=== PATIENT | female | born 1965 | race Caucasian/White ===

== ENCOUNTER 2019-01-21 10:19 | Emergency (ER) | payer MEDICARE, BC ==
[~2019-01-21] VITALS: Ht 157.5 cm; Wt 58.8 kg
[~2019-01-21 10:19] MED LIST: CARI350T PO; HYDR-3498 PO; LEVO75TA84; NORC 5-325 PO
[2019-01-21 10:45] VITALS: Ht 157.5 cm; Wt 58.8 kg
[2019-01-21] MEDS ORDERED: KETOROLAC 60 MG INJ IM STA (12:10)
--- NOTE | 2019-01-21 12:22 | ERD ---
ER Documentation Chief Complaint Chief Complaint c/o neck pain with tingling on her finger and toes HPI 53-year-old female presents with complaint of neck stiffness, shooting pain going down left arm, and shooting pain going down left leg. States that she is has a history of sciatica. She is ambulatory. States that she does not want narcotics but does want medication for pain. Denies any numbness, saddle numbness, incontinence, weakness, fevers, jaw claudication, vision problems. not taking any treatments ROS All systems reviewed and are negative except as per history of present illness. Medications Home Meds Active Scripts Cyclobenzaprine Hcl* (Cyclobenzaprine Hcl*) 10 Mg Tablet, 10 MG PO TID, #20 TAB Prov:MILTON LIANG 01/21/19 Ibuprofen* (Motrin*) 600 Mg Tab, 600 MG PO Q6, #30 TAB Prov:MILTON LIANG 01/21/19 Hydrocodone Bit-Acetaminophen* ([place]*) 5-325 Mg Tab, 1 TAB PO Q6 PRN for PAIN, #10 TAB Prov:VERENA RIBEIRO PA-C 03/03/15 Reported Medications Hydrocodone Bit-Acetaminophen* ([place]*) 5-325 Tablet, 1 TAB PO TID PRN for PAIN, TAB 03/16/14 Carisoprodol* ([place]*) 350 Mg Tablet, 350 MG PO Q8H PRN for MUSCLE SPASMS, TAB 03/16/14 Levothyroxine Sodium* (Synthroid*) 75 Mcg Tablet 03/02/11 Allergies Allergies: Coded Allergies: No Known Allergies (Verified Allergy, Mild, 03/03/15) PMhx/Soc History of Surgery: Yes ( 1991) Anesthesia Reaction: No Hx Neurological Disorder: No Hx Respiratory Disorders: No Hx Cardiac Disorders: No Hx Psychiatric Problems: Yes (BI-POLAR, DEPRESSION) Hx Miscellaneous Medical Probl: No Hx Alcohol Use: No Hx Substance Use: No Hx Tobacco Use: No Smoking Status: Never smoker FmHx Family History: No diabetes, No coronary disease, No other Physical Exam Vitals Vital Signs Date Temp Pulse Resp B/P (MAP) Pulse Ox O2 O2 Flow FiO2 Time Delivery Rate 01/21/19 63 16 120/62 97 Room Air 14:17 (81) 01/21/19 99.0 95 16 123/60 97 10:45 (81) Physical Exam Const: No acute distress Head: Atraumatic. No temporal pulsations or tenderness to palpation. Eyes: Normal Conjunctiva ENT: Normal External Ears, Nose and Mouth. No trismus. Neck: Limited rotation. No meningismus. No step-offs or bony deformities noted. No erythema or edema. Resp: Clear to auscultation bilaterally Cardio: Regular rate and rhythm, no murmurs Abd: Soft, non tender, non distended. Normal bowel sounds Skin: No petechiae or rashes Back: No midline or flank tenderness Ext: No cyanosis, or edema Neur: Awake and alert Psych: Normal Mood and Affect Neuro: M/S: Alert and oriented Face: EOMI, face and pharynx with normal sensation and function Motor: Normal strength throughout Sensation: Normal sensation throughout Speech: Normal Cerebel: Normal coordination Normal gait Normal finger to nose DTR: 2+ and symmetric upper/lower extremities Result Diagram: 01/21/19 1229 01/21/19 1229 Results 24 hrs Laboratory Tests Test 01/21/19 12:29 White Blood Count 4.0 10^3/ul Red Blood Count 4.35 10^6/ul Hemoglobin 13.1 g/dl Hematocrit 38.6 % Mean Corpuscular Volume 88.7 fl Mean Corpuscular Hemoglobin 30.1 pg Mean Corpuscular Hemoglobin Concent 33.9 g/dl Red Cell Distribution Width 13.0 % Platelet Count 281 10^3/UL Mean Platelet Volume 9.3 fl Immature Granulocytes % 0.300 % Neutrophils % 44.7 % Lymphocytes % 41.4 % Monocytes % 9.8 % Eosinophils % 3.0 % Basophils % 0.8 % Nucleated Red Blood Cells % 0.0 /100WBC Immature Granulocytes # 0.010 10^3/ul Neutrophils # 1.8 10^3/ul Lymphocytes # 1.6 10^3/ul Monocytes # 0.4 10^3/ul Eosinophils # 0.1 10^3/ul Basophils # 0.0 10^3/ul Nucleated Red Blood Cells # 0.0 10^3/ul Sodium Level 137 mmol/L Potassium Level 4.2 mmol/L Chloride Level 101 mmol/L Carbon Dioxide Level 26 mmol/L Anion Gap 10 Blood Urea Nitrogen 6 mg/dl Creatinine 0.56 mg/dl Est Glomerular Filtrat Rate mL/min > 60 mL/min Glucose Level 83 mg/dl Hemoglobin A1c 5.3 % Calcium Level 9.4 mg/dl Total Bilirubin 0.5 mg/dl Direct Bilirubin 0.00 mg/dl Indirect Bilirubin 0.5 mg/dl Aspartate Amino Transf (AST/SGOT) 23 IU/L Alanine Aminotransferase (ALT/SGPT) 21 IU/L Alkaline Phosphatase 72 IU/L Total Protein 8.0 g/dl Albumin 4.5 g/dl Globulin 3.50 g/dl Albumin/Globulin Ratio 1.28 Current Medications Medications Dose Sig/[place] Start Time Status Last (Trade) Ordered Route PRN Stop Time Admin Dose Reason Admin Ketorolac 60 mg ONCE STAT 01/21/19 DC 01/21/19 Tromethamine IM 12:10 12:22 (Toradol) 01/21/19 12:12 10 mg ONCE ONCE 01/21/19 DC 01/21/19 Cyclobenzapri PO 12:30 12:22 ne HCl 01/21/19 12:31 (Flexeril) Procedures/MDM MDM: Patient presentation consistent with cervical radiculopathy as well as sciatica. Per patient's request I ordered blood work to rule out neuropathy. Results within normal limits. Patient was given Toradol and Flexeril in the ER and stated that her symptoms resolved 100% at discharge. Patient given Rx for ibuprofen and Flexeril. I have low suspicion for CVA, cauda equina, epidural abscess, meningitis, fracture, or any other emergent condition. patient discharged with strict ER precautions. Patient advised to follow up with PMD. All questions answered at discharge. Departure Diagnosis: Primary Impression: Cervical radiculopathy Additional Impression: Sciatica Condition: Stable MILTON LIANG January 21, 2019 12:22
[2019-01-21] MEDS ORDERED: CYCLOBENZAPRINE 10 MG TAB PO ONE (12:30)
[2019-01-21] MEDS ORDERED: IBUP-1542 PO (13:44)
[2019-01-21] MEDS ORDERED: CYCL10TA7 PO (13:44)
[2019-01-21 14:17] VITALS: BP 120/62; PULSE 63; RESP 16
== END 2019-01-21 14:17 | disposition home or self-care (01) ==
LOC: FTE 10:19
DX: M54.12 Radiculopathy, cervical region (principal); M54.32 Sciatica, left side
CPT/HCPCS: 36415; 80053; 83036; 85025; 96372; 99284; J1885

== ENCOUNTER 2019-02-04 08:23 | Emergency (ER) | payer MEDICARE, BC ==
[~2019-02-04] VITALS: Ht 149.9 cm; Wt 62.0 kg
[~2019-02-04 08:23] MED LIST changes: +CYCL10TA7 PO; +IBUP-1542 PO
[2019-02-04 08:32] VITALS: Ht 149.9 cm; Wt 62.0 kg
[2019-02-04] MEDS ORDERED: KETOROLAC 15 MG INJ IM STA (09:07)
[2019-02-04] MEDS ORDERED: DIAZ5TAB PO (09:09)
[2019-02-04] MEDS ORDERED: DOCU-144 PO (09:09)
[2019-02-04] MEDS ORDERED: MAGNESIUM CITRATE 300 ML BTL PO ONE (09:30)
--- NOTE | 2019-02-04 10:06 | ERD ---
ER Documentation Chief Complaint Chief Complaint bloated/ constipation x 4 days ; left arm/ neck numbness HPI This is a 53-year-old female who has a history of anxiety, constipation and ch ronic left upper extremity pain and numbness and tingling. Patient was seen here recently and diagnosed with possible cervical radiculopathy. She recently had outpatient follow-up including MRI but does not have the results. The patient describes persistent pain to the neck left shoulder and left upper extremity with associated paresthesias. No motor weakness. Patient's main c omplaint today is constipation. She has been taking Flexeril and feels bloated and constipated for at least 4 days. The patient is refusing to take stool softeners at home. She states that she does not want to take any of those "Ex- Lax or any of that chocolate stuff". ROS All systems reviewed and are negative except as per history of present illness. Medications Home Meds Active Scripts Docusate Sodium* (Colace*) 100 Mg Capsule, 100 MG PO BID PRN for CONSTIPATION, #30 CAP Prov:VESNA KNUTSON MD 02/04/19 Diazepam* (Valium*) 5 Mg Tablet, 5 MG PO Q8 PRN for MUSCLE SPASMS, #10 TAB Prov:VESNA KNUTSON MD 02/04/19 Cyclobenzaprine Hcl* (Cyclobenzaprine Hcl*) 10 Mg Tablet, 10 MG PO TID, #20 TAB Prov:MILTON LIANG 01/21/19 Ibuprofen* (Motrin*) 600 Mg Tab, 600 MG PO Q6, #30 TAB Prov:MILTON LIANG 01/21/19 Hydrocodone Bit-Acetaminophen* ([place]*) 5-325 Mg Tab, 1 TAB PO Q6 PRN for PAIN, #10 TAB Prov:VERENA RIBEIRO PA-C 03/03/15 Reported Medications Hydrocodone Bit-Acetaminophen* ([place]*) 5-325 Tablet, 1 TAB PO TID PRN for PAIN, TAB 03/16/14 Carisoprodol* (Soma*) 350 Mg Tablet, 350 MG PO Q8H PRN for MUSCLE SPASMS, TAB 03/16/14 Levothyroxine Sodium* (Synthroid*) 75 Mcg Tablet 03/02/11 Allergies Allergies: Coded Allergies: No Known Allergies (Verified Allergy, Mild, 7/2/15) PMhx/Soc History of Surgery: Yes ( 1991 , HYSTERECTOMY ) Anesthesia Reaction: No Hx Neurological Disorder: No Hx Respiratory Disorders: No Hx Cardiac Disorders: No Hx Psychiatric Problems: Yes (BI-POLAR, DEPRESSION) Hx Miscellaneous Medical Probl: Yes (HYPOTHYROID ) Hx Alcohol Use: No Hx Substance Use: No Hx Tobacco Use: No Smoking Status: Never smoker FmHx Family History: No diabetes Physical Exam Vitals Vital Signs Date Temp Pulse Resp B/P (MAP) Pulse Ox O2 O2 Flow FiO2 Time Delivery Rate 02/04/19 112 18 108/81 98 Room Air 08:49 (90) 02/04/19 99.3 112 19 131/69 99 08:32 (89) Physical Exam General: Well developed, well nourished, no acute distress Head: Normocephalic, atraumatic. Eyes: Pupils equally reactive, EOM intact ENT: Moist mucous membranes Neck: Supple, no lymphadenopathy Respiratory: Lungs clear bilaterally, no distress Cardiovascular: RRR, no murmurs, rubs, or gallops Abdominal: Soft, non-tender, non-distended, no peritoneal signs : Deferred MSK: No edema, no unilateral swelling, 5/5 strength. The patient's left upper extremity has a 5 out of 5 strength clinical exam. She is neurovascular intact distally. Patient has some slight reproducible symptoms when palpating the paraspinal neck muscles on the left side as well as trapezius muscle. No bony abnormalities. Neurologic: Alert and oriented, moving all extremities, normal speech, no focal weakness, no cerebellar signs Skin: No rash Psych: Normal mood Results 24 hrs Current Medications Medications Dose Sig/[place] Start Time Status Last (Trade) Ordered Route PRN Stop Time Admin Dose Reason Admin Magnesium 300 ml ONCE ONCE 02/04/19 DC 02/04/19 Citrate PO 09:30 02/04/19 09:51 (Citroma) 09:31 Ketorolac 15 mg ONCE STAT 02/04/19 DC 02/04/19 Tromethamine IM 09:07 02/04/19 09:51 (Toradol) 09:08 Procedures/MDM MEDICAL DECISION MAKING: Patient is significantly anxious which is likely contributing to her presentation. Her main complaint today is constipation. Possibly secondary to Flexeril pills I recommend discontinuing this medication. A trial of Valium will be appropriate. Patient will be given magnesium citrate here. Stool softener was strongly recommended. Her abdominal exam is benign without signs of obstructive process. Patient's left upper externally paresthesias and pain are likely consistent with cervical radiculopathy, noncompressive. She has reproducible findings. No signs or symptoms concerning for dissection or acute compression. She has strong strength and no signs of stroke. ER COURSE: * Patient given nonnarcotic pain medication. Magnesium citrate and will be safely discharged. CONSULTATION: None DISPOSITION PLAN: The patient does not have an identifiable emergent medical condition that warrants inpatient hospitalization at this time. The patient is deemed safe for discharge with outpatient follow-up. We discussed follow up with the patient's primary care doctor within 24 to 48 hours as needed. We also discussed return to the emergency room for worsening symptoms or worsening condition. Outpatient referral: None required Discharge Medications: Valium, Colace Departure Diagnosis: Primary Impression: Constipation Constipation type: unspecified constipation type Qualified Codes: K59.00 - Constipation, unspecified Additional Impression: Cervical radiculopathy Condition: Stable Patient Instructions: Constipation (Adult) Referrals: [facility] YOU HAVE RECEIVED A MEDICAL SCREENING EXAM AND THE RESULTS INDICATE THAT YOU DO NOT HAVE A CONDITION THAT REQUIRES URGENT TREATMENT IN THE EMERGENCY DEPARTMENT. FURTHER EVALUATION AND TREATMENT OF YOUR CONDITION CAN WAIT UNTIL YOU ARE SEEN IN YOUR DOCTORS OFFICE WITHIN THE NEXT 1-2 DAYS. IT IS YOUR RESPONSIBILITY TO MAKE AN APPOINTMENT FOR FOLOW-UP CARE. IF YOU HAVE A PRIMARY DOCTOR --you should call your primary doctor and schedule an appointment IF YOU DO NOT HAVE A PRIMARY DOCTOR YOU CAN CALL OUR PHYSICIAN REFERRAL HOTLINE AT IF YOU CAN NOT AFFORD TO SEE A PHYSICIAN YOU CAN CHOSE FROM THE FOLLOWING [facility] [address] [facility] [address] [facility] [facility] [address] [facility] [address] [facility] [address] [facility]. [facility]. [address] [facility] YOU HAVE RECEIVED A MEDICAL SCREENING EXAM AND THE RESULTS INDICATE THAT YOU DO NOT HAVE A CONDITION THAT REQUIRES URGENT TREATMENT IN THE EMERGENCY DEPARTMENT. FURTHER EVALUATION AND TREATMENT OF YOUR CONDITION CAN WAIT UNTIL YOU ARE SEEN IN YOUR DOCTORS OFFICE WITHIN THE NEXT 1-2 DAYS. IT IS YOUR RESPONSIBILITY TO MAKE AN APPOINTMENT FOR FOLOW-UP CARE. IF YOU HAVE A PRIMARY DOCTOR --you should call your primary doctor and schedule and appointment IF YOU DO NOT HAVE A PRIMARY DOCTOR YOU CAN CALL OUR PHYSICIAN REFERRAL HOTLINE AT . IF YOU CAN NOT AFFORD TO SEE A PHYSICIAN YOU CAN CHOSE FROM THE FOLLOWING [facility] INSTITUTIONS: [facility] [address] [place] [address] [facility] [address] [place] [address] [facility] + [facility] [address] [place] [address] Additional Instructions: Call your primary care doctor TOMORROW for an appointment during the next 1 WEEK.Tell the corporate secretary that you were referred from this facility.See the doctor sooner or return here if your condition worsens before your appointment time. VESNA KNUTSON MD Feb 04, 2019 10:06
[2019-02-04] MEDS ORDERED: DIAZEPAM 5 MG/ML SYG IM ONE (10:30)
[2019-02-04 11:10] VITALS: BP 118/68; PULSE 89; RESP 18
== END 2019-02-04 11:12 | disposition home or self-care (01) ==
LOC: E/R 08:23
DX: M54.12 Radiculopathy, cervical region (principal); K59.00 Constipation, unspecified; E03.9 Hypothyroidism, unspecified
CPT/HCPCS: 96372; 99284; J1885; J3360